=== PATIENT | female | born 1980 | race Hispanic/Latino ===

== ENCOUNTER 2017-04-19 10:17 | Inpatient (IN) | payer MEDICAID ==
[~2017-04-19] VITALS: Ht 165.1 cm; Wt 104.3 kg
[~2017-04-19 10:17] MED LIST: ALPR1TAB2 PO; DEXL60CA3 PO; METO-408 PO; ONDA8TAB5 PO
[2017-04-19 11:00] VITALS: BP 139/91
[2017-04-19 11:41] LABS: BASOPHILS % (AUTO) 0.5 % (0.0-5.0); EOSINOPHILS % (AUTO) 0.9 % (0.0-8.0); HEMATOCRIT 36.5 % (36-48); LYMPHOCYTES % (AUTO) 41.4 % (21.0-51.0); MEAN CORPUSCULAR HEMOGLOBIN 27.4 pg (27.0-33.0); MEAN CORPUSCULAR HGB CONC 33.2 g/dL (32.0-36.0); MEAN CORPUSCULAR VOLUME 82.5 fL (79-99); MONOCYTES % (AUTO) 5.7 % (3.0-13.0); NEUTROPHILS % (AUTO) 51.5 % (40.0-77.0); PLATELET COUNT (AUTO) 333 K/uL (130-400); RED BLOOD CELL COUNT(AUTO) 4.43 MIL/uL (4.00-5.50); WHITE BLOOD COUNT (AUTO) 6.5 K/uL (4.8-10.8)
[2017-04-19 11:54] LABS: CREATININE 0.7 mg/dL (0.5-1.5)
[2017-04-19 11:58] LABS: ALBUMIN 3.2 g/dL (3.5-5.0); BILIRUBIN,TOTAL 0.1 mg/dL (0.2-1.0); TOTAL PROTEIN, SERUM 7.2 g/dL (6.0-8.3)
[2017-04-19] MEDS: SODIUM CHLORIDE 0.9% 1000ML 1,000 ML IV SCH ×2 (12:21→20:54)
[2017-04-19] MEDS ORDERED: DIATR MEGLU/DIATRIZOATE SODIUM 30 ML BOTTLE PO ONE (12:36)
[2017-04-19] MEDS ORDERED: IOPAMIDOL-370 75 ML VIAL IV ONE (14:30)
[2017-04-19] MEDS: ONDANSETRON HCL 4 MG/2 ML VIAL IVP PRN ×2 (15:49→20:18)
[2017-04-19] MEDS: HYDROMORPHONE 1 MG/1 ML AMP IVP PRN ×2 (15:49→20:25)
[2017-04-19 16:33] VITALS: BP 132/81
[2017-04-19 20:00] VITALS: BP 124/82
[2017-04-20] VITALS (22 sets, daily range): BP systolic 112–144; BP diastolic 60–93
[2017-04-20] MEDS: HYDROMORPHONE 1 MG/1 ML AMP IVP PRN ×6 (00:23→20:43)
[2017-04-20] MEDS: ONDANSETRON HCL 4 MG/2 ML VIAL IVP PRN ×6 (00:30→20:43)
[2017-04-20] MEDS: PANTOPRAZOLE SODIUM 40 MG TABLET.DR PO SCH (08:56)
[2017-04-20] MEDS: SODIUM CHLORIDE 0.9% 1000ML 1,000 ML IV SCH ×2 (10:02→19:23)
[2017-04-20] MEDS ORDERED: PROPOFOL 10 MG/ML 20ML VIAL IV ONE (13:21)
[2017-04-21 00:08] VITALS: BP 130/83
[2017-04-21 00:21] VITALS: BP 129/84
[2017-04-21] MEDS: ONDANSETRON HCL 4 MG/2 ML VIAL IVP PRN ×4 (01:02→17:07)
[2017-04-21] MEDS: HYDROMORPHONE 1 MG/1 ML AMP IVP PRN ×4 (01:03→13:39)
[2017-04-21 04:52] VITALS: BP 123/75
[2017-04-21] MEDS: SODIUM CHLORIDE 0.9% 1000ML 1,000 ML IV SCH (05:31)
[2017-04-21 08:05] VITALS: BP 133/73
[2017-04-21] MEDS: PANTOPRAZOLE SODIUM 40 MG TABLET.DR PO SCH (08:34)
[2017-04-21 11:48] VITALS: BP 133/94
[2017-04-21 16:16] VITALS: BP 141/95
== END 2017-04-21 17:20 | disposition home or self-care (01) | DRG 241 ==
LOC: EDH 10:17 → 4AH 11:00
PROVIDERS: ADMIT Internal Medicine Hematology & Oncology; ATTEND Internal Medicine Hematology & Oncology
PROC: 0DB48ZX Excision of Esophagogastric Junction, Via Natural or Artificial Opening Endoscopic, Diagnostic (ICD-10-PCS; principal; 2017-04-20)
PROC: 0DB78ZX Excision of Stomach, Pylorus, Via Natural or Artificial Opening Endoscopic, Diagnostic (ICD-10-PCS; 2017-04-20)
DX: K29.00 Acute gastritis without bleeding (principal); D64.9 Anemia, unspecified; E66.9 Obesity, unspecified; I10 Essential (primary) hypertension; Z80.8 Family history of malignant neoplasm of other organs or systems; K21.0 Gastro-esophageal reflux disease with esophagitis; K27.9 Peptic ulcer, site unspecified, unspecified as acute or chronic, without hemorrhage or perforation; G89.29 Other chronic pain; Z82.49 Family history of ischemic heart disease and other diseases of the circulatory system; Z85.820 Personal history of malignant melanoma of skin; Z68.38 Body mass index [BMI] 38.0-38.9, adult; Z83.3 Family history of diabetes mellitus; Z90.49 Acquired absence of other specified parts of digestive tract; Z28.21 Immunization not carried out because of patient refusal
CPT/HCPCS: 36415; 74178; 80053; 82150; 82948; 83690; 84703; 85025; 88305; 88312; 88342; C9113; J1170; J2405; J2704; J7030; Q9963; Q9967